=== PATIENT | male | born 1960 | race Caucasian/White ===

== ENCOUNTER 2016-04-21 16:13 | Inpatient (IN) | payer BC ==
[~2016-04-21] VITALS: Ht 188 cm; Wt 123.0 kg
[~2016-04-21 16:13] MED LIST: APIX1TAB3 PO; ETAN50IN2 SQ; FLEC100T21 PO; METH5TAB4 PO; METO50TA7 PO; SITA50TA3 PO
[2016-04-21] MEDS ORDERED: SODIUM CHLORIDE 0.9% 1000ML 250 ML IV STA (16:28)
[2016-04-21] MEDS ORDERED: DILTIAZEM BOLUS / DRIP IV STA (16:28)
[2016-04-21] MEDS ORDERED: GLIP5TAB3 PO (16:40)
--- NOTE | 2016-04-21 16:40 | EMERGENCY ROOM VISIT NOTE ---
History Report prepared by Bessy: Josefina Bryant Under the Supervision of: Dr. Kenn Rice M.D. First contact with patient: 16:21 Chief Complaint: RAPID HEART RATE Stated Complaint: A-FLUTTER,FAST HEART RATE,150 BPM History of Present Illness The patient is a 56 year old male who presents to the Emergency Room per PCP referral to be evaluated for a rapid heart rate and atrial flutter over the past 10 days. The patient notes that he has a history of both atrial flutter and atrial fibrillation. He has a history of a double ablation which did resolve his a-fib, but he goes into atrial flutter for about a day every few months. The patient is able to tell when he is in a-flutter. He notes that he started in a-flutter again 10 days ago but because it did not resolve, he made an appointment with cardiology. He was found to be in a-flutter during his appointment and had an ablation scheduled for May 15. Today, the patient had a follow up appointment with his PCP, and he was referred to the ER because his PCP felt that his rate was too high. He was going to be admitted directly; however, there were no beds available. Denies chest pain, shortness of breath, or other complaints. He does notice that he is more tired at the end of a a work day when he is in an irregular rhythm. The patient is on Metoprolol and had his dose doubled last week. He has been taking Eliquis since . Source of History: patient Onset: 10 days ago Position: other (cardiac) Quality: other (tachycardia and a-flutter) Timing: other (persistent) Associated Symptoms: + fatigue, No SOB, No chest pain Review of Systems See HPI for pertinent positives & negatives. A total of 10 systems reviewed and were otherwise negative. Past Medical & Surgical Medical Problems: (1) Atrial flutter (2) ATRIAL FLUTTER. RATE 150 (3) Rheumatoid arthritis (4) Type 2 diabetes mellitus Family History No pertinent family history stated. Social History Smoking Status: Never Smoker Marital Status: Occupation Status: employed Current/Historical Medications Scheduled Apixaban (Eliquis), 5 MG PO BID Etanercept (Enbrel), 50 MG SQ WK Glipizide (Glucotrol), 5 MG PO BID Metoprolol Succ (Toprol Xl) (Toprol-Xl), 50 MG PO BID Allergies Coded Allergies: Sulfa Antibiotics (Verified Adverse Reaction, Severe, Neutropenia, 04/21/16 ) Physical Exam Vital Signs Date Time Temp Pulse Resp B/P Pulse Ox O2 Delivery O2 Flow Rate FiO2 04/21/16 16:58 111 98/74 96 04/21/16 16:48 95/71 04/21/16 16:47 88/76 04/21/16 16:43 147 97 04/21/16 16:42 100 Nasal Cannula 2.0 04/21/16 16:29 146 04/21/16 16:28 146 20 97 04/21/16 16:24 135/91 04/21/16 16:16 37.1 149 18 116/82 96 Room Air Physical Exam GENERAL: Patient is in no acute distress. HEENT: No acute trauma, normocephalic atraumatic, mucous membranes moist, no nasal congestion, no scleral icterus. NECK: No stridor, no adenopathy, no meningismus, trachea is midline. LUNGS: Clear to auscultation bilaterally, no wheeze, no rhonchi, breath sounds equal. HEART: Tachycardic with a regular rhythm, no murmurs. ABDOMEN: Soft, nontender, bowel sounds positive, no hernias, no peritonitis. EXTREMITIES: No cyanosis or edema, full range of motion of all the joints without pain or difficulty, no signs for acute trauma. NEUROLOGIC: Oriented x 3, no acute motor or sensory deficits, no focal weakness. SKIN: No rash, no jaundice, no diaphoresis. Medical Decision & Procedures ER Provider Diagnostic Interpretation: Radiology results and stated below per my review and radiologist interpretation: SINGLE VIEW CHEST CLINICAL HISTORY: Atypical chest pain. FINDINGS: An AP, portable, upright chest radiograph is compared to study dated 12/22/2014. The examination is degraded by portable technique and patient rotation. The heart is mildly enlarged. The pulmonary vasculature is noncongested. There is minimal dependent atelectasis at the left lung base. The lungs and pleural spaces are otherwise clear. No pneumothorax is seen. The bony thorax is grossly intact. IMPRESSION: Mild cardiac enlargement with no active disease in the chest. Electronically signed by: Kenn Esquivel M.D. 04/21/2016 4:53 PM Dictated Date/Time: 04/21/2016 4:52 PM Laboratory Results 04/21/16 16:35 04/21/16 16:35 Test 04/21/16 16:35 Red Blood Count 5.18 M/uL (4.7-6.1) Mean Corpuscular Volume 89.2 fL (80-100) Mean Corpuscular Hemoglobin 32.6 pg (25-34) Mean Corpuscular Hemoglobin Concent 36.6 g/dl (32-36) RDW Standard Deviation 42.8 fL (36.4-46.3) RDW Coefficient of Variation 13.3 % (11.5-14.5) Mean Platelet Volume 9.6 fL (7.4-10.4) Prothrombin Time 11.2 SECONDS (9.0-12.0) Prothromb Time International Ratio 1.0 (0.9-1.1) Activated Partial Thromboplast Time 26.2 SECONDS (21.0-31.0) Partial Thromboplastin Ratio 1.0 Anion Gap 11.0 mmol/L (3-11) Est Creatinine Clear Calc Drug Dose 76.5 ml/min Estimated GFR () 59.5 Estimated GFR (Non- 51.3 BUN/Creatinine Ratio 13.5 (10-20) Calcium Level 9.3 mg/dl (8.5-10.1) Total Bilirubin 0.8 mg/dl (0.2-1) Aspartate Amino Transf (AST/SGOT) 15 U/L (15-37) Alanine Aminotransferase (ALT/SGPT) 42 U/L (12-78) Alkaline Phosphatase 80 U/L (45-117) Total Creatine Kinase 98 U/L (39-308) Creatine Kinase MB 5.4 ng/ml (0.5-3.6) Creatine Kinase MB Ratio 5.5 (0-3.0) Troponin I < 0.015 ng/ml (0-0.045) Total Protein 6.8 gm/dl (6.4-8.2) Albumin 3.6 gm/dl (3.4-5.0) Globulin 3.2 gm/dl (2.5-4.0) Albumin/Globulin Ratio 1.1 (0.9-2) Thyroid Stimulating Hormone (TSH) 2.700 uIu/ml (0.300-4.500) Laboratory results reviewed by me. Medications Administered Medications (Trade) Dose Ordered Sig/Hernan Route Start Time Stop Time Status Last Admin Dose Admin Sodium Chloride (Nss 1000ml) 250 ml @ 999 mls/hr Q16M STAT IV 04/21/16 16:28 04/21/16 16:43 DC 04/21/16 16:28 999 MLS/HR Diltiazem HCl (Cardizem Bolus / Drip) 1 ea NOW STAT IV 04/21/16 16:28 04/21/16 16:32 DC 04/21/16 16:54 1 EA Diltiazem HCl (Cardizem Inj) 25 mg STK-MED ONCE .ROUTE 04/21/16 16:49 04/21/16 16:51 DC 04/21/16 16:56 10 MG ECG Indication: tachycardia Rate (beats per minute): 147 Rhythm: atrial flutter Findings: no acute ischemic change, no ectopy ED Course 1622: The patient was evaluated in room A1. A complete history and physical exam was performed. I discussed the treatment plan with the patient. He verbalizes agreement and understanding. The patient will be evaluated for further management. 1628: Ordered Diltiazem HCl 1 ea IV, NSS 250 ml @ 999 mls/hr IV. 1627: I discussed the case with Dr. Ramesh - [facility] [place] [facility] Cardiology. He will evaluate the patient. 1631: Dr. Deanna Acosta is at bedside. The patient will be evaluated for further management. 1645: Ordered Diltiazem HCl 125 mg/Dextrose 125 ml IV. 1708: I spoke with Dr. Ramesh who said that the patient will have an ablation in the hospital tomorrow. Medical Decision Differentials include a-fib/a-flutter, cardiac ischemia, anemia, electrolyte imbalance, thyroid disorder, DE, CHF. There is no leukocytosis or concerning anemia. No significant electrolyte abnormality, kidney failure or hepatitis. The patient appears to be in a euthyroid state. There was no coagulopathy. EKG showed a rapid atrial flutter , no acute ischemia. Cardiac enzyme testing times one is not consistent with acute cardiac injury. Chest film does not show CHF or pneumonia. The patient received a small dose of IV saline, because of the rapid heart rate , I did contact the diversity manager head of precision targeting. We decided upon a Cardizem drip. The patient was given a bolus and then the drip was initiated. This did control the heart rate, his blood pressure dropped slightly. I spoke with the patient, I talked with case management. Admission/observation is warranted. Dr. Artie Mcdonald was contacted for the medical portion of the patient's hospital stay. Patient is improved since his arrival to the emergency room. Consults Time Called: 1625 Consulting Physician: Dr. Gadiel Morley [facility] [place] Cardiology Returned Call: [phone] I discussed the case with him. He will evaluate the patient. Additional Consults: Time Called: -- Consulted Physician: Dr. Deanna Acosta Returned Call: 1634 Additional Comments: He is at bedside. The patient will be evaluated for further management. Impression Primary Impression: Atrial flutter with rapid ventricular response Critical Care I have personally spent greater than 30 minutes of critical care time in the direct management of this patient. This includes bedside care, interpretation of diagnostic studies and testing, discussion with consultants, the patient, and family members, and other required patient management activities. This 30 minutes is in excess of all separately billable procedures. Scribe Attestation The scribe's documentation has been prepared under my direction and personally reviewed by me in its entirety. I confirm that the note above accurately reflects all work, treatment, procedures, and medical decision making performed by me. Departure Information Dispostion Being Evaluated By Hospitalist Referrals Artie Wesley M.D. (PCP) Patient Instructions My [facility]
[2016-04-21] MEDS ORDERED: DILTIAZEM HCL INJ 125 MG in DEXTROSE 5% 100ML IV PRN ×2 (16:45→22:45)
[2016-04-21 16:49] LABS: HEMATOCRIT 46.2 % (42-52); MEAN CELL VOLUME 89.2 fL (80-100); MEAN CORPUSCULAR HEMOGLOBIN 32.6 pg (25-34); MEAN CORPUSCULAR HGB CONC 36.6 g/dl (32-36); MEAN PLATELET VOLUME 9.6 fL (7.4-10.4); PLATELET COUNT 174 K/uL (130-400); RED BLOOD COUNT 5.18 M/uL (4.7-6.1); WHITE BLOOD COUNT 7.51 K/uL (4.8-10.8)
[2016-04-21] MEDS ORDERED: DILTIAZEM HCL 5 MG/ML 5 ML VIAL ONE (16:49)
--- NOTE | 2016-04-21 16:54 | DIAGNOSTIC IMAGING REPORT ---
SINGLE VIEW CHEST CLINICAL HISTORY: Atypical chest pain. FINDINGS: An AP, portable, upright chest radiograph is compared to study dated 12/22/2014. The examination is degraded by portable technique and patient rotation. The heart is mildly enlarged. The pulmonary vasculature is noncongested. There is minimal dependent atelectasis at the left lung base. The lungs and pleural spaces are otherwise clear. No pneumothorax is seen. The bony thorax is grossly intact. IMPRESSION: Mild cardiac enlargement with no active disease in the chest. Electronically signed by: Kenn Esquivel M.D. 04/21/2016 4:53 PM Dictated Date/Time: 04/21/2016 4:52 PM
[2016-04-21 16:58] LABS: PROTHROMBIN TIME (PATIENT) 11.2 SECONDS (9.0-12.0)
[2016-04-21 17:07] LABS: ALT/SGPT 42 U/L (12-78); AST/SGOT 15 U/L (15-37); BLOOD UREA NITROGEN 20 mg/dl (7-18); BUN/CREATININE RATIO 13.5 (10-20); CALCIUM 9.3 mg/dl (8.5-10.1); CARBON DIOXIDE 22 mmol/L (21-32); CHLORIDE 105 mmol/L (98-107); GLUCOSE 144 mg/dl (70-99); POTASSIUM 4.4 mmol/L (3.5-5.1); SODIUM 138 mmol/L (136-145)
[2016-04-21 17:17] LABS: ALB/GLOB RATIO 1.1 (0.9-2); ALKALINE PHOSPHATASE 80 U/L (45-117); CKMB/CK RATIO 5.5 (0-3.0)
--- NOTE | 2016-04-21 17:43 | Cardiology Consultation ---
Cardiology Consultation Date of Consultation: Apr 21, 2016. Requesting Physician: Dr. Mcdonald Reason for Consultation: Atrial flutter Pt evaluation today including: conversation w/ patient, conversation w/ family , physical exam, lab review, review of studies, review of inpatient medication list, conversation w/ attending History of Present Illness This is a 56-year-old gentleman who has a history of atrial fibrillation dating back to about September of 2010. Although he did not have severe symptoms it did interfere with his activities (especially golf) and therefore we felt we should try maintenance of sinus rhythm. Since that was his first known episode we arranged cardioversion without antiarrhythmic therapy. He was already on Pradaxa and had electrical cardioversion performed December 03, 2010. This was successful and he was sent home in sinus rhythm. 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 Subsequently he had return of his feelings of difficulty with exertion, but no lightheadedness, dizziness or significant dyspnea. Since he had significant improvement in his symptoms with conversion to sinus rhythm we elected to start antiarrhythmic therapy (flecainide 100 mg b.i.d.) and we repeated a cardioversion on February 05, 2011 successfully returning him to sinus rhythm. His initial echocardiogram was read as an ejection fraction between 45 and 50%, consistent with a mild cardiomyopathy but possibly simply due to the presence of atrial fibrillation interfering with the measurement. His left atrium was slightly enlarged. He has had no heart failure symptoms. This was subsequently repeated 02/16/2012 and was normal. On 10/13/2014 an echocardiogram was performed which showed LVH and mild left ventricular dysfunction with ejection fraction of 45-50%. This was felt to be worse than February 2012, presumably due to recurrence of atrial fibrillation despite adequate rate control. He had subsequently had occasional brief symptomatic episodes that might be atrial fibrillation but none lasted for any significant length of time for several years. With what appeared to be successful maintenance of sinus rhythm and a low chads score we had switched him to aspirin as an anticoagulant. He had a lot of difficulty during the winter of 2012 and spring with what I believe started out as neutropenia and he spent a long time at [facility] with various infections and acute renal failure. He then had recurrent atrial fibrillation. Apparently this started with him not being able to renew his metoprolol and flecainide due to some pharmacy mixup, therefore he was off of both of these drugs for 2 weeks. After about one week off of the drugs he developed atrial fibrillation, and he restarted his medications around September 06, 2014. Once again he did not have palpitations, he felt fatigue when he tried to play 18 holes of golf but that was really his only symptom. He remained in atrial fibrillation therefore we performed cardioversion on 10/09/2014. He quickly reverted to atrial fibrillation subsequently and had recurrence of his symptoms. I therefore arranged atrial fibrillation ablation at [facility] which was performed on November 09, 2014 (I believe this was a pulmonary vein isolation as well as an isthmus flutter line). He felt well until having recurrent symptoms and having documentation of atrial flutter on December 05, 2014. He therefore underwent cardioversion on December 08, 2014 successfully. At around 1 a.m. on December 11, 2014 he had recurrence which was documented in the office. I increased his flecainide to 150 mg twice a day on 12/13/2014 and we performed cardioversion on 12/14/2014. Since these recurrences were soon after his ablation they did not necessarily suggest lack of long-term success from the ablation. He was reluctant to continue medications and therefore both flecainide and Eliquis were discontinued. Since then he had several episodes of atrial fibrillation, although they were initially self-limiting. In mid June 2015 he developed atrial fibrillation, this lasted about 12 hours by his symptoms but he took a dose of flecainide when he felt himself go into the arrhythmia. He has had several more episodes, on 09/20/2015 he had a 12-15 hour episode (not documented, based on symptoms) and on 10/21/2015 he had a similar episode lasting less than 24 hours. He feels the irregular and fast heart rate but does not have any hemodynamic symptoms and it did not interfere with his activities. He then presented on 04/16/2016 with symptoms of recurrent palpitations starting approximately one week before that date, he noticed a sudden increase in his heart rate and a sense of palpitations. He was therefore started on Eliquis and his beta juan luis was increased, however he has continued to have an elevated heart rate. He is not very symptomatic but the rapid heart rate is worrisome. Unfortunately he was not taking his Eliquis as scheduled (initially we had planned one month of therapy with ablation at that time) therefore he could have a left atrial thrombus which we will have to exclude. Past Medical/Surgical History Past medical history: Paroxysmal atrial fibrillation flutter Mild cardiomyopathy Diabetes mellitus History of neutropenia Rheumatoid arthritis History of acute renal failure Past surgical history: Atrial fibrillation and flutter ablation Social History Smoking Status: Never Smoker History of Alcohol Use: Yes Review of Systems Constitutional: No fever, No weakness, No weight loss Respiratory: No cough, No dyspnea on exertion, No shortness of breath, No wheezing Cardiac: + palpitations, + see HPI, No PND, No chest pain, No edema, No orthopnea Abdomen: No GI bleeding, No diarrhea, No nausea, No pain, No vomiting Male : No nocturia more than once/night, No sexual dysfunction, No slowing stream, No urinary frequency Neurologic: No balance problems, No numbness/tingling, No paralysis, No weakness Heme: No abnormal bleeding/bruising, No clotting problems Endo: No fatigue Skin: No problem reported All Other Systems: Reviewed and Negative Allergies Coded Allergies: Sulfa Antibiotics (Verified Adverse Reaction, Severe, Neutropenia, 04/21/16 ) Medications Current Inpatient Medications Medications (Trade) Dose Ordered Sig/Hernan Route Start Time Stop Time Status Last Admin Dose Admin Diltiazem HCl/ Dextrose (Cardizem Inj/D5 100ml) 125 ml @ 0 mls/hr Q0M PRN IV 04/21/16 16:45 05/21/16 16:44 Heparin Sodium/ Dextrose 1 ea NOW STAT N/A 04/21/16 17:11 04/21/16 17:12 UNV Physical Exam Vital Signs Past 12 Hours Date Time Temp Pulse Resp B/P Pulse Ox O2 Delivery O2 Flow Rate FiO2 04/21/16 16:58 111 98/74 96 04/21/16 16:48 95/71 04/21/16 16:47 88/76 04/21/16 16:43 147 97 04/21/16 16:42 100 Nasal Cannula 2.0 04/21/16 16:29 146 04/21/16 16:28 146 20 97 04/21/16 16:24 135/91 04/21/16 16:16 37.1 149 18 116/82 96 Room Air Constitutional: General Apperance: heathly-appearing Level of Distress: NAD Psychiatric: Mental Status: active & alert Head: normocephalic Eyes: EOM: EOMI ENMT: normal ENT inspection, hearing grossly normal Neck: supple, no masses Lungs: Respiratory effort: no dyspnea, good air movement Auscultation: breath sounds normal, no wheezing Cardiovascular: Heart Auscultation: no murmurs, no rubs, no gallops, tachycardia, irregular rate rhythm Peripheral Pulses: Bruits: none appreciated Abdomen: Bowel Sounds: normal Inspection & Palpation: soft, no tenderness, guarding & rebound, no masses Musculoskeletal: normal strength (5/5 throughout) Extremities: no edema Neurologic: Cranial Nerves: grossly intact Sensation: grossly intact Data Laboratory Results: Last 24 Hours Test 04/21/16 16:28 04/21/16 16:35 Creatine Kinase MB Ratio White Blood Count 7.51 K/uL Red Blood Count 5.18 M/uL Hemoglobin 16.9 g/dL Hematocrit 46.2 % Mean Corpuscular Volume 89.2 fL Mean Corpuscular Hemoglobin 32.6 pg Mean Corpuscular Hemoglobin Concent 36.6 g/dl RDW Standard Deviation 42.8 fL RDW Coefficient of Variation 13.3 % Platelet Count 174 K/uL Mean Platelet Volume 9.6 fL Prothrombin Time 11.2 SECONDS Prothromb Time International Ratio 1.0 Activated Partial Thromboplast Time 26.2 SECONDS Partial Thromboplastin Ratio 1.0 Sodium Level 138 mmol/L Potassium Level 4.4 mmol/L Chloride Level 105 mmol/L Carbon Dioxide Level 22 mmol/L Anion Gap 11.0 mmol/L Blood Urea Nitrogen 20 mg/dl Creatinine 1.50 mg/dl Est Creatinine Clear Calc Drug Dose 76.5 ml/min Estimated GFR () 59.5 Estimated GFR (Non- 51.3 BUN/Creatinine Ratio 13.5 Random Glucose 144 mg/dl Calcium Level 9.3 mg/dl Aspartate Amino Transf (AST/SGOT) 15 U/L Alanine Aminotransferase (ALT/SGPT) 42 U/L Albumin 3.6 gm/dl EKG: Atrial flutter with 2-1 AV conduction, appearance of typical atrial flutter. Telemetry reviewed: Atrial flutter with initially 2-1 AV conduction and a ventricular rate about 150 bpm, subsequently variable AV conduction and a slower heart rate. Assessment & Plan #1. Atrial fibrillation and flutter: Mr. Chowdhury had been doing very well following his ablation but had several recurrences of atrial fibrillation ( based on his symptoms) which were self limited until recently. He feels that he can tell when he is in atrial fibrillation, although his symptoms are not that severe so he could have asymptomatic episodes. Now he has had atrial flutter for about 11 days, and the rate is very fast. His atrial fibrillation can be controlled more easily but his atrial flutter is difficult to rate control and I think we should repeat his flutter ablation. I would not recommend fibrillation ablation at this time but the flutter ablation can be done here and is a relatively simple procedure. Since his rate is very fast even on increased beta-blockade we should admit him and plan on doing that sooner than we had originally planned. He will need a TERRI since he was not anticoagulated and I believe has not been taking his Eliquis twice a day as instructed either. We will therefore perform a transesophageal echocardiogram tomorrow morning and if clean we will plan ablation tomorrow afternoon. In preparation I'm going to hold his Eliquis and start heparin this evening, we will control his rate with intravenous diltiazem. #2. Cardiomyopathy: He has no symptoms of heart failure and I suspect his slightly reduced ejection fraction initially was due to the presence of atrial fibrillation, his left ventricular ejection fraction had subsequently normalized. With recurrence of atrial fibrillation in the summer he again had mild left ventricular dysfunction despite adequate rate control. I think we should do what we can to try to maintain sinus rhythm to minimize the development of a cardiomyopathy in the future. Thank you for allowing me to participate in his care.
[2016-04-21] MEDS ORDERED: HEPARIN 25000 UNIT/500 ML D5W ONE (18:07)
[2016-04-21 18:50] VITALS: BP 127/82; PULSE 83; TEMP 37.1; O2SAT 97; Ht 188 cm; Wt 123.0 kg
[2016-04-21 20:00] VITALS: O2SAT 97
[2016-04-21] MEDS ORDERED: GLUCOSE 40% GEL 15 GM TUBE PO PRN (20:00)
[2016-04-21] MEDS ORDERED: DEXTROSE 50% 50 ML SYR IV PRN (20:00)
[2016-04-21] MEDS ORDERED: GLUCOSE 10 TABS/TUBE PO PRN (20:00)
[2016-04-21] MEDS ORDERED: GLUCAGON FOR INJ 1 MG VIAL SQ PRN (20:00)
[2016-04-21] MEDS: METOPROLOL SUCC 50MG EXT REL TAB PO SCH (22:21)
[2016-04-21] MEDS: INSULIN ASPART 100 UNITS/ML 3 ML PEN SC SCH (22:22)
[2016-04-21] MEDS ORDERED: NURSING VERBAL MED ORDER ONE (22:30)
--- NOTE | 2016-04-21 22:56 | HISTORY & PHYSICAL EXAMINATION ---
DATE OF ADMISSION: 04/21/2016 CHIEF COMPLAINT: A 56-year-old male admitted directly from my office with atrial flutter with a ventricular response of 150 beats per minute. 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 He was hospitalized in 2013 with severe local neutropenia and he was transferred at that time to [facility]. The patient was seen in the office today for regularly scheduled visits. On examination, he was noted to be markedly tachycardic. He was asymptomatic in the sense that he did not have any headache or dizziness or lightheadedness. He had no chest pain or shortness of breath. He does have atrial fibrillation and flutter. He sees Dr. Ramesh. He was seen by Mr. Ward Guevara in Dr. Ramesh's office on 04/16/2016. It is reported at that time that he was in atrial flutter. He was in rapid ventricular response. His metoprolol succinate dose was increased from 50 to 100 mg daily. He was also started on Eliquis 5 mg twice a day, but the patient apparently misunderstood and he has been taking the Eliquis only once a day. In view of his rate and rhythm, I did speak with Dr. Ramesh. Decided to go ahead and admit the patient. Tentatively the patient was scheduled to undergo ablation of his atrial flutter on 05/15/2016, but given the rate of 150 beats per minute, Dr. Ramesh thought that he could do the procedure earlier, possibly tomorrow. So I made arrangements for him to be admitted. Unfortunately, there was no bed available immediately in the progressive care unit, so I had sent the patient to the ER to start his evaluation and treatment. PAST MEDICAL HISTORY: 1. Type 2 diabetes mellitus first diagnosed in 2009. He was initially on metformin, but given his renal disease, the metformin was discontinued and he is currently on glipizide. He only takes 5 mg twice a day. 2. New onset of atrial fibrillation first detected in 2010. He has been seen by Dr. Ramesh. He has been tried on different medications including flecainide and metoprolol and he also had cardioversion. Unfortunately, it was not long lasting. 3. History of migratory polyarthritis. He does see Dr. Burns in rheumatology. He was diagnosed with palindromic polyarthritis. He was treated with multiple medications including prednisone and currently he is on Enbrel. 4. He has had prior sinus surgery for chronic sinus congestion. 5. He has had benign cyst removed from his nose in the past. 6. As noted above, in April of 2013, he presented with an acute illness and his WBC count was markedly decreased to 660. His hemoglobin remained normal and his platelet count was normal. The patient was transferred to [facility]. His workup was completed. 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 Eventually, he has made excellent recovery as far as his renal function is concerned. SOCIAL HISTORY: He is . No children. No history of any smoking. No history of any excessive alcohol intake; he drinks about 2 beers per day. He is a teacher. FAMILY HISTORY: His father is diabetic. His mother doing well. He has 2 half brothers and 2 sisters. One brother at age 44 of cancer and he is not sure what type. ALLERGIES: None. CURRENT MEDICATIONS: Include: 1. Metoprolol succinate 100 mg daily. 2. Eliquis 5 mg tablets as noted; it was prescribed 5 mg twice a day, but he has been taking only 5 mg daily. 3. Glipizide 5 mg twice a day. 4. Enbrel injections weekly 50 mg. 5. He has had intermittent treatments with prednisone. REVIEW OF SYSTEMS: He is completely asymptomatic as far as no evidence of any dizziness or lightheadedness. No chest pain, no shortness of breath. No nausea or vomiting. Has not had any problem with his bowel movements or urination. No pain in his back. His joint pain is pretty much under control. PHYSICAL EXAMINATION: GENERAL: Well developed, in no acute distress. His recorded weight is 122.5 kg, height 188 cm, BMI 34.7. VITAL SIGNS: Blood pressure 116/82, pulse 149, respirations 18, temperature 37.1, oxygen saturation 96% on room air. SKIN: Warm and dry. No rash. HEENT: No mucosal abnormality. NECK: Supple. Nontender. No adenopathy, no thyromegaly. No JVD. No carotid bruit. CHEST: Normal. HEART: Markedly tachycardic. No obvious murmur, rub or gallop. LUNGS: Clear. ABDOMEN: Obese, soft, nontender, without organomegaly or masses. BACK: No spinal tenderness. EXTREMITIES: No edema, clubbing, or cyanosis. No evidence of any acute arthritis. Good pulses. NEUROLOGIC: He is alert and oriented without evidence of any deficit. LABORATORY TESTS: WBC count 7510, hemoglobin 16.9, hematocrit 46.2, platelet count 174,000. Prothrombin time 11.2, INR 1.0, PTT 26.2. Sodium 138, potassium 4.4, chloride 105, CO2 22, BUN 20, creatinine 1.5. Glucose 144, calcium 9.3, magnesium 2.2, total bilirubin 0.8, AST 15, ALT 42, alkaline phosphatase 80, total CK 98, MB fraction 5.4, troponin I less than 0.015, total protein 6.8, albumin 3.6, globulin 3.2. TSH 2.7. IMAGING DATA: Chest x-ray showed evidence of mild cardiomegaly. No acute changes noted. His electrocardiogram showed atrial flutter with 2:1 conduction with a rate of 150 beats per minute. ASSESSMENT: 1. Atrial flutter with a ventricular rate of 150 beats per minute. 2. Paroxysmal atrial fibrillation and flutter. 3. Type 2 diabetes mellitus. 4. Palindromic polyarthritis on Enbrel. 5. Obesity. 6. History of cardiomyopathy. PLAN: As noted, patient was evaluated in the Emergency Room. All his laboratory tests were ordered. He was started on IV Cardizem as recommended by Dr. Ramesh. His ventricular response did slow down to the range of 100-105. The patient remained asymptomatic. He was admitted to PCU with telemetry. Resuscitation level 1. Laboratory tests were ordered. Dr. Ramesh also started him on IV heparin. The plan as it stands tonight is to control his ventricular response with IV Cardizem. IV heparin as ordered. Dr. Ramesh made arrangements for a transesophageal echocardiogram to be done tomorrow. Based on those results, if there is no evidence of any risk of thromboembolic process then Dr. Ramesh is planning on proceeding with his ablation. DONATO
[2016-04-22] VITALS (20 sets, daily range): BP systolic 101–128; BP diastolic 60–89; PULSE 65–96; TEMP 36.4–36.6; O2SAT 94–98
[2016-04-22 01:20] LABS: PARTIAL THROMBOPLASTIN RATIO 1.5
[2016-04-22] MEDS ORDERED: HEPARIN IV BOLUS 8,000 UNIT in SYRINGE 0 ML IV ONE (02:15)
[2016-04-22] MEDS: HEPARIN 25,000 UNIT/500ML D5W 500 ML IV PRN ×2 (02:26→09:29)
[2016-04-22 06:21] LABS: BASO % 0.8 %; BASO ABS # 0.05 K/uL (0-0.2); COMPLETE YES; EOS % 2.8 %; HEMATOCRIT 42.5 % (42-52); IG% 0.5 %; LYMPH % 42.3 %; LYMPH ABS # 2.74 K/uL (1.2-3.4); MEAN CELL VOLUME 90.2 fL (80-100); MEAN CORPUSCULAR HEMOGLOBIN 31.8 pg (25-34); MEAN CORPUSCULAR HGB CONC 35.3 g/dl (32-36); MEAN PLATELET VOLUME 9.8 fL (7.4-10.4); MONO % 10.3 %; NEUT % 43.3 %; PLATELET COUNT 150 K/uL (130-400); RED BLOOD COUNT 4.71 M/uL (4.7-6.1); WHITE BLOOD COUNT 6.48 K/uL (4.8-10.8)
[2016-04-22 06:41] LABS: PARTIAL THROMBOPLASTIN RATIO 4.6
[2016-04-22 06:55] LABS: BUN/CREATININE RATIO 14.5 (10-20); CALCIUM 8.1 mg/dl (8.5-10.1); CREATININE 1.3 mg/dl (0.60-1.40); POTASSIUM 4.2 mmol/L (3.5-5.1)
[2016-04-22] MEDS ORDERED: PNEUMOCOCCAL POLYSACCHARIDES 25 MCG/0.5 ML VIAL/SYR IM. ONE (08:00)
[2016-04-22] MEDS ORDERED: INFLUENZA ADMINISTRATION CHARGE ONE (08:00)
[2016-04-22] MEDS ORDERED: INFLUENZA VIRUS QUAD VACCINE 0.5 ML SYR IM. ONE (08:00)
[2016-04-22] MEDS ORDERED: PNEUMOCOCCAL ADMINISTRATION CHARGE ONE (08:00)
[2016-04-22] MEDS ORDERED: FENTANYL CITRATE INJ 50 MCG/1 ML 2 ML VIAL ONE ×3 (08:06→15:39)
[2016-04-22] MEDS ORDERED: BENZOCAIN/TETRACA/BUTAM SPRAY 200 APPLN/20 GM SPRY ONE (08:06)
[2016-04-22] MEDS ORDERED: CANNULA ONE ×2 (08:07)
[2016-04-22] MEDS ORDERED: MIDAZOLAM HCL 1 MG/ML 2ML VIAL ONE (08:07)
--- NOTE | 2016-04-22 09:10 | TEE ---
*NOTICE TO RECEIVING [employer] This information is strictly Confidential and protected under [place] law. [place] law prohibits you from making any further disclosure of this information unless further disclosure is expressly permitted by the written consent of the person to whom it pertains or is authorized by law. A general authorization for the release of medical or other information is not sufficient for this purpose. Hospital accepts no responsibility if the information is made available to any other person, INCLUDING THE PATIENT. Interpretation Summary * Conclusions -- * 1. Normal LV size, mild concentric LVH. * 2. Normal LV systolic function. LVEF 55-60%. No regional wall motion abnormalities. * 3. Normal RV size and function. * 4. Mild mitral regurgitation. * 5. Mild tricuspid regurgitation. * 6. No thrombus detected in left atrium or left atrial appendage. Procedure Details * TERRI Probe #1 utilized for procedure. * The study was performed in Cardiopulmonary Department. * Time out was conducted by the physician, nurse, and radiation control technician with positive identification of patient and procedure. * Informed consent for Transesophageal Echocardiogram was obtained prior to the procedure. * An intravenous line was placed. A topical anesthetic agent was used for oropharangeal anesthesia. A bite block was inserted. * The patient's vital signs, including blood pressure, heart rate, pulse oximetry and cardiac rhythm were monitored throughout the procedure . * Fentanyl 100 mcg was administered for procedural sedation. * Midazolam 4 mg administered for sedation. * The posterior oropharynx was anesthetized using a topical anesthetic spray. A bite guard was inserted. * The transesophageal probe was passed without difficulty. * The usual views were obtained; basal, mid-esophageal, transgastric and aortic views. * Probe insertion time is 0818. Probe removal time is 0840. * A 2D transesophageal echocardiogram with Doppler and color flow Doppler was performed. Left Ventricle * The left ventricle is grossly normal size. * There is mild concentric left ventricular hypertrophy. * Ejection Fraction = 55-60%. * No regional wall motion abnormalities noted. Right Ventricle * The right ventricle is grossly normal size. * The right ventricular systolic function is qualitatively normal. Atria * No thrombus is detected in the left atrial appendage. * The left atrium is mildly dilated. * No left atrial mass or thrombus visualized. * Right atrial size is normal. * There is no Doppler evidence for an atrial septal defect. Mitral Valve * The mitral valve leaflets appear normal. There is no evidence of stenosis, fluttering, or prolapse. * There is no mitral valve stenosis. * There is mild mitral regurgitation. Tricuspid Valve * The tricuspid valve is not well visualized, but is grossly normal. * There is no tricuspid stenosis. * There is mild tricuspid regurgitation. * Right ventricular systolic pressure is normal. Aortic Valve * The aortic valve opens well. * The aortic valve is trileaflet. * No hemodynamically significant valvular aortic stenosis. * There is no significant aortic regurgitation. Pulmonic Valve * The pulmonic valve is not well seen, but is grossly normal. * There is no pulmonic valvular stenosis. * Trace pulmonic valvular regurgitation. Great Vessels * The aortic root and proximal ascending aorta are normal sized. * No signifcant atherosclerosis in ascending, arch and descending aorta Pericardium * There is no pericardial effusion.
[2016-04-22] MEDS: METOPROLOL SUCC 50MG EXT REL TAB PO SCH ×2 (10:04→20:19)
[2016-04-22] MEDS: INSULIN ASPART 100 UNITS/ML 3 ML PEN SC SCH ×4 (10:06→21:09)
--- NOTE | 2016-04-22 14:00 | Procedure Note ---
Pre-Mod Sedation Assessment General Date of Moderate Sedation: Apr 22, 2016. Vital Signs: Vital Signs Past 12 Hours Date Time Temp Pulse Resp B/P Pulse Ox O2 Delivery O2 Flow Rate FiO2 04/22/16 12:40 Room Air 04/22/16 12:00 Room Air 04/22/16 11:34 36.6 65 18 119/76 95 Room Air 04/22/16 10:01 128/89 04/22/16 09:40 Room Air 04/22/16 09:12 77 12 101/69 96 Room Air 04/22/16 09:02 96 16 101/60 97 Room Air 04/22/16 08:53 88 16 103/62 97 Nasal Cannula 2.0 04/22/16 08:41 90 19 105/69 97 Nasal Cannula 2.0 04/22/16 08:40 Nasal Cannula 2.0 04/22/16 08:35 87 14 121/78 95 Nasal Cannula 2.0 04/22/16 08:30 82 9 114/70 95 Nasal Cannula 2.0 04/22/16 08:27 Nasal Cannula 2.0 04/22/16 08:25 88 13 109/67 94 Nasal Cannula 2.0 04/22/16 08:22 87 17 119/70 97 Nasal Cannula 2.0 04/22/16 08:18 93 20 126/77 98 Nasal Cannula 2.0 04/22/16 07:46 96 16 118/70 96 Room Air 04/22/16 07:45 96 Room Air 04/22/16 07:34 36.5 95 18 117/73 96 1.0 04/22/16 04:00 96 Room Air 04/22/16 03:52 36.5 95 20 122/72 96 Room Air Review Cardiovascular: + irregularly irregular Abdomen: normal bowel sounds Lungs: lungs clear Pre-Sedation Airway Assessment Oral Cavity: WNL Short Thick Neck: No Hx of Sleep Apnea: No Smoking Status: Never Smoker Procedure Planning Contraindications-for Mod Sed: None Yes Notes The planned sedation has been discussed with the patient and consent obtained. I have identified the patient, determined the appropriateness of sedation and have assessed the patient immediately prior to the procedure. All medicine(s) and interventions are by my order.
--- NOTE | 2016-04-22 14:27 | Cardiology Follow-Up ---
Subjective Date of Service: Apr 22, 2016. Pt evaluation today including: conversation w/ patient, conversation w/ family , physical exam, lab review, review of studies, review of inpatient medication list History of Present Illness This is a 56-year-old gentleman who has a history of atrial fibrillation dating back to about September of 2010. Although he did not have severe symptoms it did interfere with his activities (especially golf) and therefore we felt we should try maintenance of sinus rhythm. Since that was his first known episode we arranged cardioversion without antiarrhythmic therapy. He was already on Pradaxa and had electrical cardioversion performed December 03, 2010. This was successful and he was sent home in sinus rhythm. 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 Subsequently he had return of his feelings of difficulty with exertion, but no lightheadedness, dizziness or significant dyspnea. Since he had significant improvement in his symptoms with conversion to sinus rhythm we elected to start antiarrhythmic therapy (flecainide 100 mg b.i.d.) and we repeated a cardioversion on February 05, 2011 successfully returning him to sinus rhythm. His initial echocardiogram was read as an ejection fraction between 45 and 50%, consistent with a mild cardiomyopathy but possibly simply due to the presence of atrial fibrillation interfering with the measurement. His left atrium was slightly enlarged. He has had no heart failure symptoms. This was subsequently repeated 02/16/2012 and was normal. On 10/13/2014 an echocardiogram was performed which showed LVH and mild left ventricular dysfunction with ejection fraction of 45-50%. This was felt to be worse than February 2012, presumably due to recurrence of atrial fibrillation despite adequate rate control. He had subsequently had occasional brief symptomatic episodes that might be atrial fibrillation but none lasted for any significant length of time for several years. With what appeared to be successful maintenance of sinus rhythm and a low chads score we had switched him to aspirin as an anticoagulant. He had a lot of difficulty during the winter of 2012 and spring of 2013 with what I believe started out as neutropenia and he spent a long time at [facility] with various infections and acute renal failure. He then had recurrent atrial fibrillation. Apparently this started with him not being able to renew his metoprolol and flecainide due to some pharmacy mixup, therefore he was off of both of these drugs for 2 weeks. After about one week off of the drugs he developed atrial fibrillation, and he restarted his medications around September 06, 2014. Once again he did not have palpitations, he felt fatigue when he tried to play 18 holes of golf but that was really his only symptom. He remained in atrial fibrillation therefore we performed cardioversion on 10/09/2014. He quickly reverted to atrial fibrillation subsequently and had recurrence of his symptoms. I therefore arranged atrial fibrillation ablation at [facility] which was performed on November 09, 2014 (I believe this was a pulmonary vein isolation as well as an isthmus flutter line). He felt well until having recurrent symptoms and having documentation of atrial flutter on December 05, 2014. He therefore underwent cardioversion on December 08, 2014 successfully. At around 1 a.m. on December 11, 2014 he had recurrence which was documented in the office. I increased his flecainide to 150 mg twice a day on 12/13/2014 and we performed cardioversion on 12/14/2014. Since these recurrences were soon after his ablation they did not necessarily suggest lack of long-term success from the ablation. He was reluctant to continue medications and therefore both flecainide and Eliquis were discontinued. Since then he had several episodes of atrial fibrillation, although they were initially self-limiting. In mid June 2015 he developed atrial fibrillation, this lasted about 12 hours by his symptoms but he took a dose of flecainide when he felt himself go into the arrhythmia. He has had several more episodes, on 09/20/2015 he had a 12-15 hour episode (not documented, based on symptoms) and on 10/21/2015 he had a similar episode lasting less than 24 hours. He feels the irregular and fast heart rate but does not have any hemodynamic symptoms and it did not interfere with his activities. He then presented on 04/16/2016 with symptoms of recurrent palpitations starting approximately one week before that date, he noticed a sudden increase in his heart rate and a sense of palpitations. He was therefore started on Eliquis and his beta juan luis was increased, however he has continued to have an elevated heart rate. He is not very symptomatic but the rapid heart rate is worrisome. Unfortunately he was not taking his Eliquis as scheduled (initially we had planned one month of therapy with ablation at that time) therefore he could have a left atrial thrombus which we have to exclude. He was admitted and started on heparin with discontinuation of Eliquis on 2016. A transesophageal echocardiogram this morning showed no evidence of atrial thrombus. He is therefore brought to the laboratory for atrial flutter ablation. On telemetry monitoring however the rhythm may be atrial fibrillation today. He has no complaints today. Social History Smoking Status: Never Smoker History of Alcohol Use: Yes (BEER/WINE 2 DAILY) Review of Systems Respiratory: No cough, No dyspnea on exertion, No shortness of breath, No wheezing Cardiac: + palpitations, + see HPI, No PND, No chest pain, No edema, No orthopnea Objective Vital Signs Past 12 Hours Date Time Temp Pulse Resp B/P Pulse Ox O2 Delivery O2 Flow Rate FiO2 04/22/16 12:40 Room Air 04/22/16 12:00 Room Air 04/22/16 11:34 36.6 65 18 119/76 95 Room Air 04/22/16 10:01 128/89 04/22/16 09:40 Room Air 04/22/16 09:12 77 12 101/69 96 Room Air 04/22/16 09:02 96 16 101/60 97 Room Air 04/22/16 08:53 88 16 103/62 97 Nasal Cannula 2.0 04/22/16 08:41 90 19 105/69 97 Nasal Cannula 2.0 04/22/16 08:40 Nasal Cannula 2.0 04/22/16 08:35 87 14 121/78 95 Nasal Cannula 2.0 04/22/16 08:30 82 9 114/70 95 Nasal Cannula 2.0 04/22/16 08:27 Nasal Cannula 2.0 04/22/16 08:25 88 13 109/67 94 Nasal Cannula 2.0 04/22/16 08:22 87 17 119/70 97 Nasal Cannula 2.0 04/22/16 08:18 93 20 126/77 98 Nasal Cannula 2.0 04/22/16 07:46 96 16 118/70 96 Room Air 04/22/16 07:45 96 Room Air 04/22/16 07:34 36.5 95 18 117/73 96 1.0 04/22/16 04:00 96 Room Air 04/22/16 03:52 36.5 95 20 122/72 96 Room Air Last Recorded Weight-Kilograms: 122.200 Intake & Output 8-Hour Column 04/21/16 04/22/16 04/22/16 16:00 00:00 08:00 Intake Total 131 ml 663 ml Output Total 550 ml Balance 131 ml 113 ml 24-Hour Column 04/22/16 08:00 Intake Total 794 ml Output Total 550 ml Balance 244 ml Physical Exam Constitutional: General Apperance: heathly-appearing Level of Distress: NAD Lungs: Respiratory effort: no dyspnea, good air movement Auscultation: breath sounds normal, no wheezing Cardiovascular: Heart Auscultation: no murmurs, no rubs, no gallops, tachycardia, irregular rate rhythm Peripheral Pulses: Bruits: none appreciated Extremities: no edema Data Laboratory Results: Last 24 Hours Test 04/21/16 16:35 04/21/16 21:12 04/22/16 00:49 04/22/16 06:06 White Blood Count 7.51 K/uL 6.48 K/uL Red Blood Count 5.18 M/uL 4.71 M/uL Hemoglobin 16.9 g/dL 15.0 g/dL Hematocrit 46.2 % 42.5 % Mean Corpuscular Volume 89.2 fL 90.2 fL Mean Corpuscular Hemoglobin 32.6 pg 31.8 pg Mean Corpuscular Hemoglobin Concent 36.6 g/dl 35.3 g/dl RDW Standard Deviation 42.8 fL 43.6 fL RDW Coefficient of Variation 13.3 % 13.4 % Platelet Count 174 K/uL 150 K/uL Mean Platelet Volume 9.6 fL 9.8 fL Prothrombin Time 11.2 SECONDS Prothromb Time International Ratio 1.0 Activated Partial Thromboplast Time 26.2 SECONDS 39.3 SECONDS 120.2 SECONDS Partial Thromboplastin Ratio 1.0 1.5 4.6 Sodium Level 138 mmol/L 139 mmol/L Potassium Level 4.4 mmol/L 4.2 mmol/L Chloride Level 105 mmol/L 106 mmol/L Carbon Dioxide Level 22 mmol/L 23 mmol/L Anion Gap 11.0 mmol/L 10.0 mmol/L Blood Urea Nitrogen 20 mg/dl 19 mg/dl Creatinine 1.50 mg/dl 1.30 mg/dl Est Creatinine Clear Calc Drug Dose 76.5 ml/min 88.1 ml/min Estimated GFR () 59.5 70.7 Estimated GFR (Non- 51.3 61.0 BUN/Creatinine Ratio 13.5 14.5 Random Glucose 144 mg/dl 155 mg/dl Calcium Level 9.3 mg/dl 8.1 mg/dl Magnesium Level 2.2 mg/dl 2.0 mg/dl Total Bilirubin 0.8 mg/dl 0.9 mg/dl Aspartate Amino Transf (AST/SGOT) 15 U/L 16 U/L Alanine Aminotransferase (ALT/SGPT) 42 U/L 34 U/L Alkaline Phosphatase 80 U/L 69 U/L Total Creatine Kinase 98 U/L Creatine Kinase MB 5.4 ng/ml Creatine Kinase MB Ratio 5.5 Troponin I < 0.015 ng/ml Total Protein 6.8 gm/dl 5.7 gm/dl Albumin 3.6 gm/dl 2.9 gm/dl Globulin 3.2 gm/dl 2.8 gm/dl Albumin/Globulin Ratio 1.1 1.0 Thyroid Stimulating Hormone (TSH) 2.700 uIu/ml Bedside Glucose 203 mg/dl Neutrophils (%) (Auto) 43.3 % Lymphocytes (%) (Auto) 42.3 % Monocytes (%) (Auto) 10.3 % Eosinophils (%) (Auto) 2.8 % Basophils (%) (Auto) 0.8 % Neutrophils # (Auto) 2.81 K/uL Lymphocytes # (Auto) 2.74 K/uL Monocytes # (Auto) 0.67 K/uL Eosinophils # (Auto) 0.18 K/uL Basophils # (Auto) 0.05 K/uL Immature Granulocyte % (Auto) 0.5 % Immature Granulocyte # (Auto) 0.03 K/uL Test 04/22/16 06:33 04/22/16 11:09 04/22/16 13:42 Bedside Glucose 150 mg/dl 161 mg/dl Activated Partial Thromboplast Time 51.3 SECONDS Partial Thromboplastin Ratio 2.0 Imaging: A transesophageal echocardiogram this morning showed no left atrial clot Telemetry reviewed: Atrial flutter and possibly atrial fibrillation, rate controlled on IV medications. Assessment and Plan #1. Atrial fibrillation and flutter: Mr. Chowdhury had been doing very well following his ablation but had several recurrences of atrial fibrillation ( based on his symptoms) which were self limited until recently. He feels that he can tell when he is in atrial fibrillation, although his symptoms are not that severe so he could have asymptomatic episodes. Now he has had atrial flutter for about 11 days, and the rate is very fast. His atrial fibrillation can be controlled more easily but his atrial flutter is difficult to rate control and I think we should repeat his flutter ablation. I would not recommend fibrillation ablation at this time but the flutter ablation can be done here and is a relatively simple procedure. Since his rate is very fast even on increased beta-blockade we should plan on doing that sooner than we had originally planned. His transesophageal echo showed no evidence of left atrial clot. Although he may be in atrial fibrillation this morning we should attempt ablation, we can certainly do it anatomically along the tricuspid caval isthmus. If he is in atrial fibrillation in the laboratory I may try to convert his rhythm with Corvert or electrically which will allow us to document block across the isthmus. I discussed the indications, procedure, risks of this with the patient and his and they understand and he agrees to proceed. Consent obtained. #2. Cardiomyopathy: He has no symptoms of heart failure and I suspect his slightly reduced ejection fraction initially was due to the presence of atrial fibrillation, his left ventricular ejection fraction had subsequently normalized. With recurrence of atrial fibrillation in the summer he again had mild left ventricular dysfunction despite adequate rate control. I think we should do what we can to try to maintain sinus rhythm to minimize the development of a cardiomyopathy in the future. Thank you for allowing me to participate in his care.
[2016-04-22] MEDS ORDERED: MIDAZOLAM HCL 5 MG/ML 1 ML VIAL ONE ×2 (14:34→15:39)
[2016-04-22] MEDS ORDERED: LIDOCAINE HCL 1% 20 ML VIAL ONE (14:34)
[2016-04-22] MEDS ORDERED: IBUTILIDE FUMARATE 0.1 MG/ML 10 ML VIAL ONE (14:51)
--- NOTE | 2016-04-22 16:11 | Procedure Note ---
Post-Mod Sedation Assessment General Date of Moderate Sedation Apr 22, 2016. Vital Signs: Vital Signs Past 12 Hours Date Time Temp Pulse Resp B/P Pulse Ox O2 Delivery O2 Flow Rate FiO2 04/22/16 12:40 Room Air 04/22/16 12:00 Room Air 04/22/16 11:34 36.6 65 18 119/76 95 Room Air 04/22/16 10:01 128/89 04/22/16 09:40 Room Air 04/22/16 09:12 77 12 101/69 96 Room Air 04/22/16 09:02 96 16 101/60 97 Room Air 04/22/16 08:53 88 16 103/62 97 Nasal Cannula 2.0 04/22/16 08:41 90 19 105/69 97 Nasal Cannula 2.0 04/22/16 08:40 Nasal Cannula 2.0 04/22/16 08:35 87 14 121/78 95 Nasal Cannula 2.0 04/22/16 08:30 82 9 114/70 95 Nasal Cannula 2.0 04/22/16 08:27 Nasal Cannula 2.0 04/22/16 08:25 88 13 109/67 94 Nasal Cannula 2.0 04/22/16 08:22 87 17 119/70 97 Nasal Cannula 2.0 04/22/16 08:18 93 20 126/77 98 Nasal Cannula 2.0 04/22/16 07:46 96 16 118/70 96 Room Air 04/22/16 07:45 96 Room Air 04/22/16 07:34 36.5 95 18 117/73 96 1.0 Review - Discharge Criteria Vital Signs Stable: Yes Alert/Oriented/Conversant: Yes Returned to Baseline Mental St: Yes Nausea Absent/Minimal: Yes Pain/Discomfort/Absent/Minimal: Yes Normal/Baseline Respirations: Yes Active Bleeding?: No
[2016-04-22] MEDS ORDERED: ACETAMINOPHEN 325 MG TAB PO PRN (16:15)
--- NOTE | 2016-04-22 16:15 | Cardiology Procedure Brief Nt ---
Preliminary Cardiology Note Procedure Date Apr 22, 2016. Pre-Procedure Diagnosis atrial fibrillation and atrial flutter Post-Procedure Diagnosis atrial fibrillation Procedure(s) Performed Chemical cardioversion with Corvert Tricuspid caval isthmus ablation 3-D mapping All Around Gear Machine Operator Dr. Ramesh Social Science Analyst(s) none Estimated Blood Loss 10 cc Preliminary Findings Patient arrived in the laboratory in atrial fibrillation, Corvert converted the rhythm to sinus Tricuspid caval isthmus ablation performed anatomically Post ablation poor or no conduction across the ablation line Recommendations Monitor overnight, restart anticoagulation Specimens None Anesthesia local with sedation Complication(s) None Disposition PCU
[2016-04-22] MEDS ORDERED: KETOROLAC TROMETHAMINE 10 MG TAB PO PRN (17:00)
--- NOTE | 2016-04-22 17:44 | PROGRESS NOTE ---
DATE: 04/22/2016 SUBJECTIVE: A 56-year-old male admitted with atrial flutter with 2:1 conduction and a heart rate of 150 beats per minute. The patient with paroxysmal atrial fibrillation and flutter, also type 2 diabetes mellitus, and rheumatoid arthritis. The patient was admitted. He was started on IV Cardizem. That did control his ventricular response, which is down to around 100. He was seen by Dr. Ramesh in cardiology consultation. He recommended starting the IV Cardizem. He also started him on IV heparin. Overall, he is resting comfortably. He had no headache, no dizziness, no chest pain, and no shortness of breath. No abdominal pain, no nausea, and no vomiting. PHYSICAL EXAMINATION: GENERAL: Well developed in no distress. VITAL SIGNS: Blood pressure 118/70, pulse 96 and irregular, respirations 16, temperature 36.5, and oxygen saturation 96% on room air. SKIN: Warm and dry. No rash. HEENT: No mucosal abnormality. NECK: No JVD. No adenopathy. HEART: Irregular heart sounds. LUNGS: Clear. ABDOMEN: Soft and nontender. EXTREMITIES: No edema, clubbing, or cyanosis. TODAY'S LABORATORY TESTS: WBC count 6480, hemoglobin 15, hematocrit 42.5, and platelet count 150,000. His PTT was 120.2. Sodium 139, potassium 4.2, chloride 106, CO2 of 23, BUN 19, creatinine 1.3, glucose 155, calcium 8.1, and magnesium 2.0. Total bilirubin 0.9, AST 16, ALT 34, alkaline phosphatase 69, total protein 5.7, and albumin 2.9. His electrocardiogram showed atrial flutter with variable AV block. His ventricular response was 96 beats per minute. ASSESSMENT: 1. Atrial flutter initially with 2:1 conduction and then, with the treatment with IV Cardizem, it is now with variable AV block. 2. Type 2 diabetes mellitus. 3. Rheumatoid arthritis. PLAN: 1. Overall, his condition is stable. 2. As noted, he was already seen by Dr. Ramesh. 3. He was scheduled for TERRI by Dr. Ramesh to be done by Dr. Kade Wong. 4. If he does not show any thromboembolic risk, then Dr. Ramesh is planning on proceeding with ablation of his atrial flutter.
[2016-04-22] MEDS: APIXABAN 2.5 MG TAB PO SCH (20:19)
[2016-04-23 00:35] VITALS: BP 134/84; PULSE 89; TEMP 36.6; O2SAT 97
[2016-04-23 03:54] VITALS: BP 132/89; PULSE 87; TEMP 36.8; O2SAT 95
--- NOTE | 2016-04-23 07:44 | Cardiology Procedure Brief Nt ---
Preliminary Cardiology Note Procedure Date Apr 23, 2016. Pre-Procedure Diagnosis Atrial fibrillation Post-Procedure Diagnosis Same Procedure(s) Performed Electrical cardioversion Plaster Caster Gadiel College Football Coach(s) None Estimated Blood Loss None Preliminary Findings Successful cardioversion with 200J Recommendations Monitor, continue amiodarone Specimens None Anesthesia Via anesthesia dept Complication(s) None Disposition PCU
[2016-04-23 07:58] LABS: HEMATOCRIT 41.1 % (42-52); MEAN CELL VOLUME 92.8 fL (80-100); MEAN CORPUSCULAR HGB CONC 35.5 g/dl (32-36); MEAN PLATELET VOLUME 9.9 fL (7.4-10.4); PLATELET COUNT 129 K/uL (130-400); RED BLOOD COUNT 4.43 M/uL (4.7-6.1); WHITE BLOOD COUNT 4.81 K/uL (4.8-10.8)
--- NOTE | 2016-04-23 08:23 | Discharge Instructions ---
Discharge Instructions Admission Reason for Admission: Atrial Flutter. Rate 150 Discharge Discharge Diagnosis / Problem: ATRIAL FLUTTER Discharge Goals Goal(s): Decrease discomfort, Improve function, Increase independence, Improve disease control Activity Recommendations Activity Limitations: resume your previous activity . Instructions / Follow-Up Instructions / Follow-Up DR VALENTINO GEE IN ONE WEEK Current Hospital Diet Patient's current hospital diet: Diabetes Type 2 Diet Discharge Diet Recommended Diet: Diabetes Type 2 Diet Pending Studies Studies pending at discharge: no Medical Emergencies . Who to Call and When: Medical Emergencies: If at any time you feel your situation is an emergency, please call 911 immediately. . Non-Emergent Contact Non-Emergency issues call your: Primary Care Provider . . "Provider Documentation" section prepared by Artie Gee. VTE Core Measure Inpt VTE Proph given/why not?: Other Anticoagulation
--- NOTE | 2016-04-23 08:33 | Cardiology Follow-Up ---
Subjective Date of Service: Apr 23, 2016. Pt evaluation today including: conversation w/ patient, physical exam, lab review, review of studies, review of inpatient medication list, conversation w/ attending History of Present Illness This is a 56-year-old gentleman who has a history of atrial fibrillation dating back to about September of 2010. Although he did not have severe symptoms it did interfere with his activities (especially golf) and therefore we felt we should try maintenance of sinus rhythm. Since that was his first known episode we arranged cardioversion without antiarrhythmic therapy. He was already on Pradaxa and had electrical cardioversion performed December 03, 2010. This was successful and he was sent home in sinus rhythm. 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 Subsequently he had return of his feelings of difficulty with exertion, but no lightheadedness, dizziness or significant dyspnea. Since he had significant improvement in his symptoms with conversion to sinus rhythm we elected to start antiarrhythmic therapy (flecainide 100 mg b.i.d.) and we repeated a cardioversion on February 05, 2011 successfully returning him to sinus rhythm. His initial echocardiogram was read as an ejection fraction between 45 and 50%, consistent with a mild cardiomyopathy but possibly simply due to the presence of atrial fibrillation interfering with the measurement. His left atrium was slightly enlarged. He has had no heart failure symptoms. This was subsequently repeated 02/16/2012 and was normal. On 10/13/2014 an echocardiogram was performed which showed LVH and mild left ventricular dysfunction with ejection fraction of 45-50%. This was felt to be worse than February 2012, presumably due to recurrence of atrial fibrillation despite adequate rate control. He had subsequently had occasional brief symptomatic episodes that might be atrial fibrillation but none lasted for any significant length of time for several years. With what appeared to be successful maintenance of sinus rhythm and a low chads score we had switched him to aspirin as an anticoagulant. He had a lot of difficulty during the winter of 2012 and spring of 2013 with what I believe started out as neutropenia and he spent a long time at [facility] with various infections and acute renal failure. He then had recurrent atrial fibrillation. Apparently this started with him not being able to renew his metoprolol and flecainide due to some pharmacy mixup, therefore he was off of both of these drugs for 2 weeks. After about one week off of the drugs he developed atrial fibrillation, and he restarted his medications around September 06, 2014. Once again he did not have palpitations, he felt fatigue when he tried to play 18 holes of golf but that was really his only symptom. He remained in atrial fibrillation therefore we performed cardioversion on 10/09/2014. He quickly reverted to atrial fibrillation subsequently and had recurrence of his symptoms. I therefore arranged atrial fibrillation ablation at [facility] which was performed on November 09, 2014 (I believe this was a pulmonary vein isolation as well as an isthmus flutter line). He felt well until having recurrent symptoms and having documentation of atrial flutter on December 05, 2014. He therefore underwent cardioversion on December 08, 2014 successfully. At around 1 a.m. on December 11, 2014 he had recurrence which was documented in the office. I increased his flecainide to 150 mg twice a day on 12/13/2014 and we performed cardioversion on 12/14/2014. Since these recurrences were soon after his ablation they did not necessarily suggest lack of long-term success from the ablation. He was reluctant to continue medications and therefore both flecainide and Eliquis were discontinued. Since then he had several episodes of atrial fibrillation, although they were initially self-limiting. In mid June 2015 he developed atrial fibrillation, this lasted about 12 hours by his symptoms but he took a dose of flecainide when he felt himself go into the arrhythmia. He has had several more episodes, on 09/20/2015 he had a 12-15 hour episode (not documented, based on symptoms) and on 10/21/2015 he had a similar episode lasting less than 24 hours. He feels the irregular and fast heart rate but does not have any hemodynamic symptoms and it did not interfere with his activities. He then presented on 04/16/2016 with symptoms of recurrent palpitations starting approximately one week before that date, he noticed a sudden increase in his heart rate and a sense of palpitations. He was therefore started on Eliquis and his beta juan luis was increased, however he has continued to have an elevated heart rate. He is not very symptomatic but the rapid heart rate is worrisome. Unfortunately he was not taking his Eliquis as scheduled (initially we had planned one month of therapy with ablation at that time) therefore he could have a left atrial thrombus which we have to exclude. He was admitted and started on heparin with discontinuation of Eliquis on 2016. A transesophageal echocardiogram yesterday morning showed no evidence of atrial thrombus. On telemetry monitoring however the rhythm was atrial fibrillation yesterday morning. We did perform the electrophysiology study and ablation, I converted the rhythm using Corvert before the procedure and then did an anatomic isthmus ablation. Afterwards he was noninducible but that may not be reliable for future events. He feels well today, he has no groin discomfort and no complaints. Social History Smoking Status: Never Smoker History of Alcohol Use: Yes (BEER/WINE 2 DAILY) Review of Systems Respiratory: No cough, No dyspnea on exertion, No shortness of breath, No wheezing Cardiac: + palpitations, + see HPI, No PND, No chest pain, No edema, No orthopnea Medications Cardiovascular: Item Value Date Time ECG - STAT (CPL) Logged 04/23/16742 Apixaban 5 mg 04/22/16 2100 (Eliquis Tab) BID/PO 04/22/162018 Metoprolol 50 mg 04/21/16 2100 Succinate BID/PO 04/22/162018 (Toprol Xl Tab) Objective Vital Signs Past 12 Hours Date Time Temp Pulse Resp B/P Pulse Ox O2 Delivery O2 Flow Rate FiO2 04/23/16 04:00 Room Air 04/23/16 03:54 36.8 87 18 132/89 95 Room Air 04/23/16 00:35 36.6 89 18 134/84 97 04/23/16 00:00 Room Air Last Recorded Weight-Kilograms: 123.000 Intake & Output 8-Hour Column 04/22/16 04/23/16 04/23/16 16:00 00:00 08:00 Intake Total 306 ml 300 ml 200 ml Balance 306 ml 300 ml 200 ml 24-Hour Column 04/23/16 08:00 Intake Total 806 ml Balance 806 ml Physical Exam Constitutional: General Apperance: heathly-appearing Level of Distress: NAD Lungs: Respiratory effort: no dyspnea, good air movement Auscultation: breath sounds normal, no wheezing Cardiovascular: Heart Auscultation: no murmurs, no rubs, no gallops, tachycardia, irregular rate rhythm Peripheral Pulses: Bruits: none appreciated Extremities: no edema Right going catheterization insertion site is clean and dry without hematoma or bruit Data Laboratory Results: Last 24 Hours Test 04/22/16 11:09 04/22/16 13:42 04/22/16 16:38 04/22/16 20:28 Bedside Glucose 161 mg/dl 107 mg/dl 172 mg/dl Activated Partial Thromboplast Time 51.3 SECONDS Partial Thromboplastin Ratio 2.0 Test 04/23/16 04:44 04/23/16 06:20 04/23/16 07:33 Bedside Glucose 134 mg/dl White Blood Count 4.81 K/uL Red Blood Count 4.43 M/uL Hemoglobin 14.6 g/dL Hematocrit 41.1 % Mean Corpuscular Volume 92.8 fL Mean Corpuscular Hemoglobin 33.0 pg Mean Corpuscular Hemoglobin Concent 35.5 g/dl RDW Standard Deviation 46.0 fL RDW Coefficient of Variation 13.4 % Platelet Count 129 K/uL Mean Platelet Volume 9.9 fL EKG: Sinus rhythm, no acute changes Telemetry reviewed: Sinus rhythm since electrophysiologic study yesterday. Assessment and Plan #1. Atrial fibrillation and flutter: Hopefully this will help minimize recurrence of his arrhythmia, some of his symptoms may be due to atrial fibrillation (they've not been corded as to their brief nature), the prolonged recorded episode was atrial flutter and that hopefully will not recur. The success rate for flutter ablation should be fairly high although we could not map the arrhythmia to determine whether he truly wasn't isthmus-dependent arrhythmia) due to the presence of atrial fibrillation at study). #2. Cardiomyopathy: He has no symptoms of heart failure and I suspect his slightly reduced ejection fraction initially was due to the presence of atrial fibrillation, his left ventricular ejection fraction had subsequently normalized. With recurrence of atrial fibrillation in the summer of 2014 he again had mild left ventricular dysfunction despite adequate rate control. I think we should do what we can to try to maintain sinus rhythm to minimize the development of a cardiomyopathy in the future. If he has recurrent symptoms suggestive of atrial fibrillation we should try to record the rhythm. Stable for discharge, I will arrange outpatient follow-up. Thank you for allowing me to participate in his care.
[2016-04-23 08:37] VITALS: BP 132/89; PULSE 87; TEMP 36.8; O2SAT 95
[2016-04-23] MEDS: METOPROLOL SUCC 50MG EXT REL TAB PO SCH (08:45)
[2016-04-23] MEDS: APIXABAN 2.5 MG TAB PO SCH (08:45)
[2016-04-23] MEDS: INSULIN ASPART 100 UNITS/ML 3 ML PEN SC SCH (08:46)
--- NOTE | 2016-05-05 21:46 | DISCHARGE SUMMARY ---
DISCHARGE DIAGNOSES: 1. Atrial flutter with 2:1 conduction. 2. Paroxysmal atrial fibrillation. 3. Type 2 diabetes mellitus. 4. Palindromic polyarthritis. 5. Obesity. 6. History of cardiomyopathy. DISCHARGE MEDICATIONS: 1. Eliquis 5 mg twice a day. 2. Enbrel 50 mg injection subcutaneously once weekly. 3. Glipizide 5 mg twice a day. 4. Metoprolol succinate 50 mg twice a day. CONSULTATION: Poli Ramesh MD in cardiology. PROCEDURE: Tricuspid caval isthmus ablation done by Dr. Ramesh. Mr. Chowdhury is a 56-year-old male, admitted directly from the office with atrial fibrillation with 2:1 conduction, rate of 150 beats per minute. The patient with multiple medical problems as previously noted. He was seen in the office for his regularly scheduled visit. On examination, he was noted to be markedly tachycardic. He was asymptomatic. He did not really have any headache, dizziness or lightheadedness. He had no chest pain or shortness of breath. An electrocardiogram was done. The patient was in atrial flutter. His ventricular rate was 150 beats per minute. The patient was admitted for further treatment. PAST MEDICAL HISTORY, SOCIAL HISTORY AND FAMILY HISTORY: All as noted. ALLERGIES: None. MEDICATIONS ON ADMISSION: All as noted on his home medication list. PHYSICAL EXAMINATION AND ADMISSION LABORATORY TESTS: All as noted. HOSPITAL COURSE: The patient was evaluated in the Emergency Room. All his laboratory tests were ordered. He was started on IV Cardizem as recommended by Dr. Ramesh. His ventricular response did slow down to the range of 100-105. He remained asymptomatic. He was admitted to PCU with telemetry. He was started on IV heparin. Dr. Ramesh made arrangements for the patient to have a transesophageal echocardiogram and he was planning on proceeding with an ablation procedure. His rhythm changed intermittently and he was at times in atrial fibrillation, other times in atrial flutter. The following day, he had a TERRI done by Dr. Kade Wong. There was no evidence of any thrombus. Dr. Ramesh proceeded with tricuspid caval isthmus ablation. The procedure was successful. Postoperatively, the patient was started back on Eliquis. He was continued on his other medications. He was completely asymptomatic. He was ambulating. Tolerating his diet. He had no complaints whatsoever. The patient was discharged home in good condition. He is to follow up with Dr. Ramesh.
== END 2016-04-23 09:28 | disposition home or self-care (01) | DRG 274 ==
LOC: ENRESERVTM → ENRESERVDT → C.EDB 16:13 → C.2T 17:35
PROVIDERS: ADMIT Internal Medicine; ATTEND Internal Medicine
PROC: 02583ZZ Destruction of Conduction Mechanism, Percutaneous Approach (ICD-10-PCS; principal; 2016-04-22 14:09)
PROC: 02K83ZZ Map Conduction Mechanism, Percutaneous Approach (ICD-10-PCS; principal; 2016-04-22 14:09)
PROC: 5A2204Z Restoration of Cardiac Rhythm, Single (ICD-10-PCS; 2016-04-23)
DX: I48.92 Unspecified atrial flutter (principal); I48.0 Paroxysmal atrial fibrillation; I42.9 Cardiomyopathy, unspecified; E11.9 Type 2 diabetes mellitus without complications; M12.39 Palindromic rheumatism, multiple sites; M06.9 Rheumatoid arthritis, unspecified; E66.9 Obesity, unspecified; Z68.34 Body mass index [BMI] 34.0-34.9, adult; Z79.01 Long term (current) use of anticoagulants; Z79.84 Long term (current) use of oral hypoglycemic drugs; Z79.899 Other long term (current) drug therapy

== ENCOUNTER 2016-06-10 07:59 | Emergency (ER) | payer BC ==
[~2016-06-10] VITALS: Ht 188 cm; Wt 123.1 kg
[~2016-06-10 07:59] MED LIST changes: -FLEC100T21 PO; +GLIP5TAB3 PO; -METH5TAB4 PO; -SITA50TA3 PO
[2016-06-10 08:00] VITALS: TEMP 36.7; Ht 188 cm; Wt 123.1 kg
[2016-06-10 08:10] VITALS: O2SAT 97
--- NOTE | 2016-06-10 08:26 | EMERGENCY ROOM VISIT NOTE ---
History Report prepared by Bessy: Josefina Bryant Under the Supervision of: Dr. Kevin Briones M.D. First contact with patient: 08:16 Chief Complaint: CARDIAC ASSESSMENT Stated Complaint: PINCH IN HEART AREA Nursing Triage Summary: Pt reports since last thursday he has felt like his heart has been beating fast. pt reports hx of two ablation 2.5 years ago at [facility] and albation at [facility] on 04-22-16. pt reports he had an appt with dr ochoa today. pt denies feeling dizzy. pt reports "pinch" in chest rated 1/10. History of Present Illness The patient is a 56 year old male who presents to the Emergency Room with complaints of a persistent racing heart rate that began 3-4 days ago. He also complains of minimal pinching in the left side of his chest. The patient has a history of atrial flutter and atrial fibrillation and has had multiple ablations. His most recent ablation was April 22. He was scheduled to see Dr. Ramesh - Cardiology later today, but felt that he should be seen in the ED due to his symptoms. He does currently feel like he is in atrial flutter. The patient has not had any discomfort with exertion and was able to play golf last night without any significant discomfort. He does report pulling a tick out of his left arm last night. He is unsure how long the tick was there. Denies shortness of breath, weakness, or other complaints. Source of History: patient Onset: 3-4 days ago Position: other (cardiac) Quality: other (racing heart rate) Timing: other (persistent) Associated Symptoms: + chest pain (minimal pinching in left chest), No SOB, No weakness Review of Systems All systems have been listed, reviewed, and are negative other than those previously mentioned. Please see Additional Medical History Sheet. Past Medical & Surgical Medical Problems: (1) Atrial flutter (2) ATRIAL FLUTTER. RATE 150 (3) Rheumatoid arthritis (4) Type 2 diabetes mellitus Family History Cancer Diabetes mellitus Social History Smoking Status: Never Smoker Smokeless Tobacco Use: No Alcohol Use: occasionally Marital Status: Housing Status: lives with significant other Occupation Status: employed Current/Historical Medications Scheduled Apixaban (Eliquis), 5 MG PO BID Etanercept (Enbrel), 50 MG SQ WK Glipizide (Glucotrol), 5 MG PO BID Metoprolol Succ (Toprol Xl) (Toprol-Xl), 50 MG PO BID Allergies Coded Allergies: Sulfa Antibiotics (Verified Adverse Reaction, Severe, Neutropenia, 06/10/16) Physical Exam Vital Signs Date Time Temp Pulse Resp B/P Pulse Ox O2 Delivery O2 Flow Rate FiO2 06/10/16 12:34 137 18 115/90 96 06/10/16 12:11 140 06/10/16 11:18 138 16 136/95 93 Room Air 06/10/16 10:11 129 18 122/89 95 Room Air 06/10/16 09:15 130 18 123/99 97 Room Air 06/10/16 08:15 113 06/10/16 08:11 96 Room Air 06/10/16 08:10 97 Room Air 06/10/16 08:10 129 18 130/105 96 Room Air 06/10/16 08:00 36.7 138 20 133/91 96 Room Air Physical Exam GENERAL: Patient awake, alert, oriented x 3. Patient follows commands. Patient does not appear toxic. Patient is adequately hydrated and well- nourished. SKIN: No erythema, pallor, cyanosis or rash HEENT: Normal head, pupils equal, reactive to light and accommodation. Ears normal. Oral cavity and posterior pharynx appear normal. Neck: Without adenopathy, no neck vein distention. LUNGS: Clear to auscultation. No wheezes, no rales, no rhonchi. HEART: Regular rapid rate. No murmurs. No gallops. No rubs ABDOMEN: Obese. No masses, no rebound, no hepatomegaly or splenomegaly. EXTREMITIES: No signs of trauma. No pedal or pretibial edema. No calf or thigh tenderness. NEUROLOGIC: Cranial nerves II-XII within normal limits. No gross motor sensory function deficits. Medical Decision & Procedures ER Provider Diagnostic Interpretation: Radiology results as stated below per my review and radiologist interpretation: CHEST 2 VIEWS ROUTINE HISTORY: Atypical CHEST PAIN COMPARISON: Chest 04/21/2016. FINDINGS: The lungs are clear. Cardiac silhouette is normal in size. No pleural effusions. No pneumothorax. IMPRESSION: No acute process. Electronically signed by: Marc Saavedra M.D. 06/10/2016 8:59 AM Dictated Date/Time: 06/10/2016 8:57 AM Laboratory Results 06/10/16 08:10 06/10/16 08:10 Test 06/10/16 08:10 Red Blood Count 5.34 M/uL (4.7-6.1) Mean Corpuscular Volume 89.7 fL (80-100) Mean Corpuscular Hemoglobin 32.8 pg (25-34) Mean Corpuscular Hemoglobin Concent 36.5 g/dl (32-36) RDW Standard Deviation 42.3 fL (36.4-46.3) RDW Coefficient of Variation 13.1 % (11.5-14.5) Mean Platelet Volume 10.0 fL (7.4-10.4) Anion Gap 8.0 mmol/L (3-11) Est Creatinine Clear Calc Drug Dose 82.2 ml/min Estimated GFR () 64.6 Estimated GFR (Non- 55.8 BUN/Creatinine Ratio 13.6 (10-20) Calcium Level 9.4 mg/dl (8.5-10.1) Troponin I 0.015 ng/ml (0-0.045) Laboratory results as stated above per my review. Medications Administered Medications (Trade) Dose Ordered Sig/Hernan Route Start Time Stop Time Status Last Admin Dose Admin Doxycycline Hyclate (Vibramycin Cap) 200 mg ONE ONCE PO 06/10/16 08:30 06/10/16 08:31 DC 06/10/16 08:36 200 MG ECG Indication: tachycardia Rate (beats per minute): 138 Rhythm: atrial flutter Findings: nonspecific-ST abn, other (2 to 1 block) ED Course 0817: Past medical records reviewed. The patient was evaluated in room B10. A complete history and physical examination was performed. 0830: Ordered Vibramycin Cap 200 mg PO. 0947: I discussed the case with Dr. Dai Morley [facility]. 1002: I reassessed the patient and updated him on results so far. 1025: I discussed the case with Dr. Gadiel Morley [facility] [place]. He assessed the patient and is determining a treatment plan. 1149: I spoke with Dr. Ramesh. He recommended increasing the Metoprolol to 100 mg BID. 1159: Upon reevaluation, the patient was doing well and was comfortable going home. I discussed today's findings with the patient. He verbalized agreement of the treatment plan. The patient was discharged home. He will follow up with Dr. Ramesh this week and Dr. Robertson of [facility] next week. Medical Decision I considered multiple diagnoses including myocardial infarction, chest wall pain , pericarditis, myocarditis, aortic emergencies, pulmonary embolism, congestive heart failure, GI causes, atrial fibrillation, atrial flutter, and other significant cardiopulmonary disorders. The patient is here with atrial flutter. He most likely had this for several days. Multiple labs, EKG and imaging were obtained. Please see above. I discussed this case at length with who also evaluated the patient in the ED. After multiple discussions with him and his discussion with [place] [facility] it was decided that the patient could safely return home. We have increased his metoprolol to 100 mg twice a day. Consults Time Called: [phone] Consulting Physician: Dr. Dai [facility] Returned Call: [phone] I discussed the case with him. Additional Consults: Time Called: -- Consulted Physician: Dr. Gadiel [facility] Returned Call: [phone] Additional Comments: I discussed the case with him. He assessed the patient and is determining a treatment plan. Time Called: -- Consulted Physician: Dr. Gadiel [facility] Returned Call: [phone] Additional Comments: He recommended increasing the Metoprolol to 100 mg BID. Impression Primary Impression: Atrial flutter Scribe Attestation The scribe's documentation has been prepared under my direction and personally reviewed by me in its entirety. I confirm that the note above accurately reflects all work, treatment, procedures, and medical decision making performed by me. Departure Information Dispostion Home / Self-Care Referrals No Doctor, Assigned (PCP) Poli Ramesh M.D. Patient Instructions My [facility] Additional Instructions Increase metoprolol to 100 mg twice a day. Continue all of your other current medications as prescribed. Expect a call from Dr. Ramesh this week. Return here sooner if you develop any chest pain or shortness of breath.
[2016-06-10] MEDS ORDERED: DOXYCYCLINE HYCLATE 100 MG CAP PO ONE (08:30)
[2016-06-10 08:36] LABS: HEMATOCRIT 47.9 % (42-52); MEAN CELL VOLUME 89.7 fL (80-100); MEAN CORPUSCULAR HEMOGLOBIN 32.8 pg (25-34); MEAN CORPUSCULAR HGB CONC 36.5 g/dl (32-36); PLATELET COUNT 168 K/uL (130-400); RED BLOOD COUNT 5.34 M/uL (4.7-6.1); WHITE BLOOD COUNT 7.46 K/uL (4.8-10.8)
[2016-06-10 08:43] LABS: BUN/CREATININE RATIO 13.6 (10-20); CALCIUM 9.4 mg/dl (8.5-10.1); CREATININE 1.4 mg/dl (0.60-1.40); POTASSIUM 4.5 mmol/L (3.5-5.1)
[2016-06-10] MEDS ORDERED: ETAN50IN2 SQ (08:51)
--- NOTE | 2016-06-10 09:00 | DIAGNOSTIC IMAGING REPORT ---
CHEST 2 VIEWS ROUTINE HISTORY: Atypical CHEST PAIN COMPARISON: Chest 04/21/2016. FINDINGS: The lungs are clear. Cardiac silhouette is normal in size. No pleural effusions. No pneumothorax. IMPRESSION: No acute process. Electronically signed by: Marc Saavedra M.D. 06/10/2016 8:59 AM Dictated Date/Time: 06/10/2016 8:57 AM
[2016-06-10 12:34] VITALS: BP 115/90; PULSE 137; O2SAT 96
== END 2016-06-10 12:36 | disposition home or self-care (01) ==
LOC: C.EDB 08:00
DX: I48.92 Unspecified atrial flutter (principal); E11.9 Type 2 diabetes mellitus without complications; M06.9 Rheumatoid arthritis, unspecified; Z80.9 Family history of malignant neoplasm, unspecified; Z83.3 Family history of diabetes mellitus; Z79.899 Other long term (current) drug therapy; Z79.01 Long term (current) use of anticoagulants

== ENCOUNTER → 2016-10-14 | Outpatient (CLI) | payer BC ==
[2016-10-14 13:46] LABS: BASO % 0.8 %; BASO ABS # 0.04 K/uL (0-0.2); COMPLETE YES; EOS % 2.1 %; IG% 0.4 %; LYMPH % 26.4 %; LYMPH ABS # 1.28 K/uL (1.2-3.4); MEAN CELL VOLUME 94.4 fL (80-100); MEAN CORPUSCULAR HEMOGLOBIN 32.9 pg (25-34); MEAN CORPUSCULAR HGB CONC 34.9 g/dl (32-36); MEAN PLATELET VOLUME 10.2 fL (7.4-10.4); MONO % 10.9 %; NEUT % 59.4 %; PLATELET COUNT 130 K/uL (130-400); RED BLOOD COUNT 5.19 M/uL (4.7-6.1); WHITE BLOOD COUNT 4.85 K/uL (4.8-10.8)
[2016-10-14 14:05] LABS: ESTIMATED AVERAGE GLUCOSE 177 mg/dl; HA1C FLAG Normal (Normal)
[2016-10-14 14:44] LABS: ALT/SGPT 56 U/L (12-78); AST/SGOT 20 U/L (15-37); BLOOD UREA NITROGEN 13 mg/dl (7-18); CARBON DIOXIDE 27 mmol/L (21-32); CHLORIDE 102 mmol/L (98-107); CHOLESTEROL 184 mg/dl (0-200); GLUCOSE 194 mg/dl (70-99); POTASSIUM 4.7 mmol/L (3.5-5.1); SODIUM 135 mmol/L (136-145)
[2016-10-14 14:46] LABS: ALB/GLOB RATIO 1.1 (0.9-2); ALKALINE PHOSPHATASE 93 U/L (45-117); CHOLESTEROL/HDL RATIO 5.4; HDL CHOLESTEROL 34 mg/dl; TRIGLYCERIDES 118 mg/dl (0-150); VERY LOW DENSITY LIPOPROT CALC 24 mg/dl
== END | disposition home or self-care (01) ==
LOC: C.LABSPEC 12:26
PROVIDERS: ATTEND Internal Medicine
DX: I10 Essential (primary) hypertension (principal); E78.5 Hyperlipidemia, unspecified; E11.9 Type 2 diabetes mellitus without complications; I48.91 Unspecified atrial fibrillation

== ENCOUNTER → 2016-10-27 | Outpatient (CLI) | payer BC | END | disposition home or self-care (01) | LOC: C.LABSPEC 12:13 | PROVIDERS: ATTEND Internal Medicine | DX: Z12.11 Encounter for screening for malignant neoplasm of colon (principal) ==

== ENCOUNTER → 2017-03-12 | Outpatient (CLI) | payer BC ==
[2017-03-12 20:42] LABS: ALBUMIN 3.7 gm/dl (3.4-5.0); ALT/SGPT 60 U/L (12-78); AST/SGOT 18 U/L (15-37); BLOOD UREA NITROGEN 14 mg/dl (7-18); CALCIUM 9.5 mg/dl (8.5-10.1); CARBON DIOXIDE 26 mmol/L (21-32); CREATININE 1.36 mg/dl (0.60-1.40); GLUCOSE 236 mg/dl (70-99); POTASSIUM 4.5 mmol/L (3.5-5.1); SODIUM 135 mmol/L (136-145)
[2017-03-12 20:48] LABS: ALKALINE PHOSPHATASE 117 U/L (45-117); TOTAL PROTEIN 7.1 gm/dl (6.4-8.2)
[2017-03-13 06:25] LABS: HEMOGLOBIN A1C 8.1 % (4.5-5.6)
== END | disposition home or self-care (01) ==
LOC: C.LABSPEC 17:43
PROVIDERS: ATTEND Internal Medicine
DX: E11.65 Type 2 diabetes mellitus with hyperglycemia (principal); I48.0 Paroxysmal atrial fibrillation

== ENCOUNTER → 2017-05-01 | Outpatient (CLI) | payer BC ==
[~2017-05-01] MED LIST changes: -METO50TA7 PO; +METO50TA8 PO
[2017-05-06 08:18] LABS: C-PEPTIDE** TC 372 4.45 NG/ML (0.80-3.85)
== END | disposition home or self-care (01) ==
LOC: C.LABBFT 06:57
PROVIDERS: ATTEND Internal Medicine
DX: E11.9 Type 2 diabetes mellitus without complications (principal)